=== PATIENT | male | born 1990 | race African-American/Black ===

== ENCOUNTER 2016-09-21 23:37 | Emergency (ER) | payer OTHER ==
[~2016-09-21] VITALS: Ht 177.8 cm; Wt 75.0 kg
[2016-09-22] VITALS: Ht 177.8 cm; Wt 75.0 kg
[2016-09-22] MEDS ORDERED: IBUP-1542 PO (00:52)
[2016-09-22] MEDS ORDERED: SOD CHLORIDE 0.9% 1,000 ML IV STA (00:56)
--- NOTE | 2016-09-22 01:05 | ERD ---
ER Documentation Chief Complaint Date/Time DATE: 09/22/16 TIME: 01:03 Chief Complaint weakness x 4 days HPI 26-year-old man complaining of generalized weakness 4 days he also states he has sharp nonexertional nonradiating chest pain. He states the pain is sharp without obvious precipitating factors, denies cough. He denies fevers or chills , no cough, no calf or leg swelling, no vomiting or diarrhea. He has had no recent travel or leg swelling. History of drug abuse. ROS All systems reviewed and are negative except as per history of present illness. Medications Home Meds Active Scripts Ibuprofen* (Ibuprofen*) 600 Mg Tablet, 600 MG PO Q8 for PAIN AND/OR INFLAMMATION , #30 TAB Prov:RALPH KIM MD 09/22/16 Allergies Allergies: Coded Allergies: No Known Allergy (Unverified , 11/24/12) PMhx/Soc Possible drug abuse History of Surgery: No Anesthesia Reaction: No Hx Neurological Disorder: No Hx Respiratory Disorders: No Hx Cardiac Disorders: No Hx Psychiatric Problems: No Hx Miscellaneous Medical Probl: Yes (knee surgery secondary to torn ACL) Hx Alcohol Use: Yes Hx Substance Use: No Hx Tobacco Use: No Smoking Status: Unknown if ever smoked FmHx Family History: No diabetes Physical Exam Vitals Vital Signs Date Time Temp Pulse Resp B/P Pulse Ox O2 Delivery O2 Flow Rate FiO2 09/22/16 03:08 97.8 58 20 109/88 100 Room Air 09/22/16 02:00 97.8 55 20 112/82 100 Room Air 09/22/16 00:54 97.8 51 20 118/86 100 Room Air 09/22/16 00:15 51 17 113/76 99 Room Air 09/22/16 00:00 98.3 65 20 97/55 100 Physical Exam GENERAL: Well-developed, well-nourished, well-hydrated, in no apparent distress , looks nontoxic in appearance HEENT: Moist mucous membranes, pink conjunctiva, no cervical spine tenderness or step-off deformities, no goiter, no jaundice or icterus, extraocular movements intact without pain. No submandibular induration, and no pharyngeal erythema NEURO: Alert and oriented 3, cranial nerves II through XII intact bilaterally, pupils equal round reactive to light, no focal deficits or facial asymmetry, sensation intact distally Strength 5/5 in upper and lower extremities bilaterally CARDIAC: Regular rate and rhythm, no murmurs rubs or gallops LUNGS: Clear bilaterally no wheezing crackles or stridor ABDOMEN: Soft nontender, no guarding, no rigidity, no rebound, no psoas sign no obturator sign. Normoactive bowel sounds SKIN: Warm and dry to touch, no abrasions, contusions, or hematomas, no lacerations, no ecchymosis, no target lesions, and without ulcers EXTREMITIES: No clubbing cyanosis or edema, calves are bilaterally symmetrical, no Homans sign, no popliteal cord sign. Distal pulses equal and bilateral PSYCH: Normal affect without agitation or irritability Results 24 hrs Laboratory Tests Test 09/22/16 01:00 Troponin I < 0.012ng/ml Current Medications Medications (Trade) Dose Ordered Sig/Jovani Route PRN Reason Start Time Stop Time Status Last Admin Dose Admin Sodium Chloride (NS) 1,000 ml @ 1,000 mls/hr Q1H STAT IV 09/22/16 00:56 09/22/16 01:55 DC 09/22/16 01:08 Procedures/MDM IV line was established patient was placed on athletic monitor rhythm strip revealed a sinus bradycardia at about 50 bpm with upright P and T waves. Patient was afebrile. I administered 1 L normal saline intravenously. One AP view of the chest performed, read by me reveals no acute infiltrates, normal mediastinum, sharp costophrenic and cardiac borders, no air under the diaphragm. Otherwise unremarkable chest x-ray. EKG performed, read by me revealed a sinus bradycardia at 49 bpm, normal axis, narrow QRS complex, no concerning ST elevations or depressions noted. Troponin was negative. Differential diagnoses considered, included but not limited to acute coronary syndrome, pulmonary embolism, aortic dissection, abdominal aortic aneurysm, sepsis, stroke, meningitis, encephalitis, pneumonia, appendicitis, cholecystitis , bowel obstruction, pyelonephritis, nephrolithiasis, cystitis, as well as metabolic, hematologic, and electrolyte abnormalities. As well as abscess, cellulitis, fractures, and dislocations. Patient feels much better at this time, and vital signs are normal, symptoms have improved. I did give strict instructions to return to the ED if symptoms continue or worsen, patient will otherwise follow-up with primary care physician. Patient understood instructions and agreed to plan. Disclaimer: Inadvertent spelling or grammatical errors are likely due to EHR/ dictation software use and do not reflect on the overall quality of patient care. Departure Diagnosis: Primary Impression: Chest pain Chest pain type: unspecified Qualified Code: R07.9 - Chest pain, unspecified type Additional Impressions: Dehydration Weakness Condition: Good Patient Instructions: Chest Pain, Uncertain Cause RALPH KIM MD September 22, 2016 01:05
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
[2016-09-22 03:08] VITALS: BP 109/88; PULSE 58; RESP 20; TEMP 97.8
== END 2016-09-22 03:08 | disposition home or self-care (01) ==
LOC: E/R 23:37
DX: R07.9 Chest pain, unspecified (principal); E86.0 Dehydration
CPT/HCPCS: 36415; 71010; 84484; J7030; Z7502

== ENCOUNTER 2016-10-29 17:23 | Emergency (ER) | payer OTHER ==
[~2016-10-29] VITALS: Ht 177.8 cm; Wt 81.0 kg
[~2016-10-29 17:23] MED LIST: IBUP-1542 PO
[2016-10-29 17:30] VITALS: Ht 177.8 cm; Wt 81.0 kg
[2016-10-29] MEDS ORDERED: IBUPROFEN 800 MG TAB PO ONE (18:00)
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
[2016-10-29] MEDS ORDERED: TRAM50TA2 PO (19:41)
[2016-10-29] MEDS ORDERED: ACET500C5 PO (19:42)
[2016-10-29] MEDS ORDERED: NAPR-260 PO (19:42)
[2016-10-29] MEDS ORDERED: NEOM1PAC TP (19:43)
[2016-10-29 19:52] VITALS: BP 137/90; PULSE 62; RESP 18
== END 2016-10-29 19:55 | disposition home or self-care (01) ==
LOC: FTE 17:23
DX: S49.92XA Unspecified injury of left shoulder and upper arm, initial encounter (principal); V03.00XA Pedestrian on foot injured in collision with car, pick-up truck or van in nontraffic accident, initial encounter
CPT/HCPCS: 73030; 73080; 73090; 73110; Z7502; Z7610